=== PATIENT | female | born 1950 | race Caucasian/White ===

== ENCOUNTER 2022-06-07 11:02 | Day surgery (SDC) | payer MEDICARE, BC ==
--- NOTE | 2022-06-07 09:37 | HP ---
DATE OF SURGERY: 06/07/2022 HISTORY OF PRESENT ILLNESS: The patient is a 71-year-old had some bilateral arm aches. She had adenopathy increasingly symptomatic. She is in need of biopsy for definitive path. PAST MEDICAL HISTORY: Chronic obstructive pulmonary disease, hypertension, diabetes mellitus type II, anxiety, depression, cervical cancer, nicotine dependence. PAST SURGICAL HISTORY: Cardiac catheterization. Colonoscopy. Appendectomy. Hysterectomy. Cholecystectomy. MEDICATIONS: Klor-Con, pravastatin, citalopram, furosemide, Toradol, hydrocodone-acetaminophen, calcium with vitamin D, acetaminophen, aspirin. ALLERGIES: PENICILLIN. SULFA. SENSITIVE TO MORPHINE, MEFOXIN. FAMILY HISTORY: Heart disease, cancer, diabetes, hypertension, arthritis. SOCIAL HISTORY: One pack per day smoker, denies alcohol abuse. REVIEW OF SYSTEMS: Fourteen systems reviewed. Negative or noncontributory as above and per preadmission questionnaire. PHYSICAL EXAMINATION: GENERAL: No acute distress. HEENT: Sclerae nonicteric. NECK: No JVD. CHEST: Equal excursion, nonlabored breathing. CVS: Regular rate and rhythm. ABDOMEN: Soft. EXTREMITIES: Axillary adenopathy left side seems greater than the right. NEURO: Alert, oriented, moving extremities symmetrically. No gross motor deficits noted. PSYCH: Appropriate mood and affect. IMPRESSION: Axillary adenopathy in need of excisional biopsy for definite path to evaluate for lymphoma or other etiology. General risk of bleeding or infection, risk of hematoma or seroma or lymphocele formation, risk of lymph edema, risk of aches, pains, burning or numbness possibly terminal operator or chronic in nature, risk of sensory or motor nerve irritation, scar formation or injury. Risk of terminal operator numbness or weakness of shoulder, extremity or scapula but not limited to. General risk of anesthesia, deep venous thrombosis, pulmonary embolism, or pneumonia but not limited to, possibility that pathology will not be able to determine what is causing the adenopathy possibly requiring other possible biopsies. General risk of anesthesia, deep vein thrombosis, pulmonary embolism or pneumonia, general risk of aches and pains but not limited to, consent obtained. Will proceed with outpatient left axillary lymph node biopsy as an outpatient.
[2022-06-07] MEDS ORDERED: CLINDAMYCIN-D5W 600 MG/50 ML*** 600 MG/50 ML BAG IV ONE (11:03)
[2022-06-07 11:56] LABS: ALBUMIN 4.3 g/dL (3.5-5.0); ALKALINE PHOSPHATASE 62 U/L (38-126); ANION GAP 11.8 MEQ/L (5-15); BLOOD UREA NITROGEN 14 mg/dL (7-17); CHLORIDE 107 mmol/L (98-107); Calcium 9.3 mg/dL (8.4-10.2); Carbon Dioxide 24 mmol/L (22-30); Creatinine 1 0.83 mg/dL (0.52-1.04); EST GLOMERULAR FILTRATION RATE > 60.0 ML/MIN; Glucose 108 mg/dL (74-106); Potassium 3.1 mmol/L (3.5-5.1); SGOT/AST 22 U/L (14-36); SGPT/ALT 13 U/L (0-35); SODIUM 140 mmol/L (137-145); Total Protein 7.3 g/dL (6.3-8.2)
[2022-06-07] MEDS ORDERED: DIPRIVAN 200 MG/20 ML IV ONE (13:09)
[2022-06-07] MEDS ORDERED: BRIDION 200MG/2ML IV ONE (13:09)
[2022-06-07] MEDS ORDERED: Xylocaine-Mpf 2% 5 Ml Vial ONE (13:09)
[2022-06-07] MEDS ORDERED: SUBLIMAZE 100 MCG/2 ML ONE (13:09)
[2022-06-07] MEDS ORDERED: TORAdol 30 mg Injection ONE (13:09)
[2022-06-07] MEDS ORDERED: Zemuron 100 MG/10 ML ONE (13:09)
[2022-06-07] MEDS ORDERED: Decadron 4 MG INJ ONE (13:09)
[2022-06-07] MEDS ORDERED: Zofran 4 MG/2 ML VIAL ONE (13:09)
[2022-06-07] MEDS ORDERED: PHENYLEPHRINE HCL ONE (13:35)
[2022-06-07] MEDS ORDERED: XYLOCAINE 1% HCL 20 ML MDV ONE (13:53)
[2022-06-07] MEDS ORDERED: Sensorcaine 0.25% 10 ML ONE (13:53)
[2022-06-07] MEDS: Lactated Ringers 1,000 ML IV SCH (15:26)
[2022-06-07 16:11] VITALS: O2SAT 97
[2022-06-07 16:13] VITALS: BP 165/86; PULSE 51
--- NOTE | 2022-06-08 08:26 | OP ---
SURGERY DATE/TIME: 06/07/2022 1318 PREOPERATIVE DIAGNOSIS: Diffuse adenopathy left axilla greater than right, need for biopsy for tissue sampling per lymph node protocol. POSTOPERATIVE DIAGNOSIS: Diffuse adenopathy left axilla greater than right, need for biopsy for tissue sampling per lymph node protocol. PROCEDURE: Excisional biopsy left axillary lymph nodes x2. SURGEON: Dr. Romulo Palma. ANESTHESIA: General. ESTIMATED BLOOD LOSS: Minimal. INDICATIONS: As noted above. Risks and benefits explained in detail and not limited to and consent obtained. The site had been confirmed and marked in the preoperative holding area. DESCRIPTION OF PROCEDURE AND FINDINGS: The patient is taken to the operating room. General anesthesia induced. She is prepped and draped in the usual sterile fashion. After official time out and no disagreement with planned procedure, a transverse incision is made in the axilla. Dissection carried down to axillary fat pad. Directly on top she had two larger nodes. The first is carefully dissected free with a combination of clamp and LigaSure device staying directly on the lymph node capsule. This had a little bit of necrotic creamy drainage. The lymph node was passed off per lymph node protocol to evaluate for lymphoma, infection or other etiology. There was a little bit larger node that seemed to be a little firmer. It is felt that this should be sent as well to see if this is other etiology. It is carefully dissected free staying directly on the lymph node capsule with the aid of the LigaSure device. The back edge had a little bit of creamy discharge and area of necrosis. It is carefully dissected free staying directly on the lymphatics, arterioles and venules going in and out of the node with LigaSure device and passed off for pathology. Good hemostasis noted. The wound is irrigated out. A 7 flat SHADY drain placed in the deep axillary space out the inferior stab wound and secured with PDS suture. The axillary wound irrigated out. The fascia closed with 3-0 Vicryl. Subcu closed with 3-0 Vicryl. Skin closed with 4-0 Vicryl. The staff was going to place some Dermabond wet to dry and pressure dressing. The patient tolerated the procedure well. There were no immediate complications.
== END 2022-06-07 16:00 | disposition home or self-care (01) ==
LOC: SDC 11:02
PROVIDERS: ATTEND Surgery
DX: R59.9 Enlarged lymph nodes, unspecified (principal); E11.9 Type 2 diabetes mellitus without complications; I10 Essential (primary) hypertension; Z80.9 Family history of malignant neoplasm, unspecified
CPT/HCPCS: 36415; 80053; 82947; 93005; J1100; J1885; J2370; J2405; J2704; J3010